=== PATIENT | male | born 1930 | race African-American/Black ===

== ENCOUNTER 2017-05-16 13:58 | Emergency (ER) | payer SELFPAY ==
[~2017-05-16] VITALS: Ht 160 cm; Wt 74.0 kg
[2017-05-16 16:04] LABS: BASOPHILS % 0.3 % (0.0-2.0); CHLORIDE 107 mEq/L (98-107); EOSINOPHILS % 3.1 % (0.0-5.0); INR 1.2; LYMPHOCYTES % 47.9 % (20.0-50.0); MEAN CORPUSCULAR HEMOGLOBIN 28.9 pg (28.0-32.0); MEAN CORPUSCULAR VOLUME 84.1 fL (80.0-94.0); MEAN PLATELET VOLUME 10.4 fl (7.4-10.4); MONOCYTES % 9.9 % (2.0-8.0); NEUTROPHILS % 38.8 % (40.0-76.0); PLATELET 211 x1000/uL (130-400); PROTHROMBIN TIME 12.7 sec (9.4-11.6); RED BLOOD CELL COUNT 4.16 mill/uL (4.7-6.1)
[2017-05-16 16:12] LABS: CARBON DIOXIDE 26 mEq/L (21-32); TROPONIN I < 0.02 ng/mL (0.00-0.04)
[2017-05-16 20:00] VITALS: BP 134/72
[2017-05-16] MEDS ORDERED: ACETAMINOPHEN 325MG TABLET PO ONE (20:15)
== END 2017-05-16 21:40 | disposition home or self-care (01) ==
LOC: ER 15:13
DX: M94.0 Chondrocostal junction syndrome [Tietze] (principal); E86.0 Dehydration; R07.89 Other chest pain; D72.821 Monocytosis (symptomatic); R79.1 Abnormal coagulation profile; D64.9 Anemia, unspecified; Z85.46 Personal history of malignant neoplasm of prostate
CPT/HCPCS: 36415; 71010; 80053; 83880; 84484; 85025; 85610; 93005; 99285; Z7610